=== PATIENT | female | born 1980 | race Two or more races ===

== ENCOUNTER 2020-10-06 14:38 | Emergency (ER) | payer OTHER ==
[~2020-10-06] VITALS: Ht 165.1 cm; Wt 61.2 kg
[2020-10-06] MEDS ORDERED: COZAAR25 MG PO (15:11)
[2020-10-06] MEDS ORDERED: LEVSIN/SL0.125 MG SL (21:44)
== END 2020-10-06 21:54 | disposition home or self-care (01) ==
LOC: ER 14:38
DX: K29.70 Gastritis, unspecified, without bleeding (principal); N83.202 Unspecified ovarian cyst, left side

== ENCOUNTER 2020-10-08 13:12 | Emergency (ER) | payer OTHER ==
[~2020-10-08] VITALS: Ht 165.1 cm; Wt 61.2 kg
[~2020-10-08 13:12] MED LIST: COZAAR25 MG PO; LEVSIN/SL0.125 MG SL
[2020-10-08] MEDS ORDERED: PROZAC20 MG (13:38)
[2020-10-08] MEDS ORDERED: SINGULAIR 10MG10 MG (13:39)
[2020-10-08] MEDS ORDERED: ALLEGRA ALLERGY60 MG (13:40)
[2020-10-08] MEDS ORDERED: CLONAZEPAM1 M1 (13:40)
[2020-10-08] MEDS ORDERED: PROTONIX20 MG (13:41)
== END 2020-10-08 21:06 | disposition home or self-care (01) ==
LOC: ER 13:12
DX: K29.00 Acute gastritis without bleeding (principal)

== ENCOUNTER 2020-12-23 15:49 | Emergency (ER) | payer OTHER ==
[~2020-12-23] VITALS: Ht 152.4 cm; Wt 66.7 kg
[~2020-12-23 15:49] MED LIST changes: +ALLEGRA ALLERGY60 MG; +CLONAZEPAM1 M1; +PROTONIX20 MG; +PROZAC20 MG; +SINGULAIR 10MG10 MG
[2020-12-23] MEDS ORDERED: PAXIL20 MG PO (15:54)
[2020-12-23] MEDS ORDERED: NORMAL SALINE FL2 ML IH (18:29)
[2020-12-23] MEDS ORDERED: PHENERGAN25 MG PO (18:29)
[2020-12-23] MEDS ORDERED: TREXIMET 85-501 EACH PO (18:29)
== END 2020-12-23 19:00 | disposition home or self-care (01) ==
LOC: ER 15:49
DX: R51.9 Headache, unspecified (principal); R11.2 Nausea with vomiting, unspecified; Z03.818 Encounter for observation for suspected exposure to other biological agents ruled out; J45.998 Other asthma; R09.81 Nasal congestion

== ENCOUNTER 2021-02-06 19:54 | Emergency (ER) | payer OTHER ==
[~2021-02-06] VITALS: Ht 165.1 cm; Wt 63.5 kg
[~2021-02-06 19:54] MED LIST changes: +NORMAL SALINE FL2 ML IH; +PAXIL20 MG PO; +PHENERGAN25 MG PO; +TREXIMET 85-501 EACH PO
[2021-02-06] MEDS ORDERED: ZOFRAN8 MG PO (23:15)
[2021-02-06] MEDS ORDERED: DICY20TA PO (23:15)
[2021-02-06] MEDS ORDERED: PEPCID AC20 MG PO (23:15)
[2021-02-06] MEDS ORDERED: SINGULAIR10 MG PO (23:15)
== END 2021-02-07 00:22 | disposition home or self-care (01) ==
LOC: ER 19:54
DX: B34.8 Other viral infections of unspecified site (principal); Z20.822 Contact with and (suspected) exposure to COVID-19

== ENCOUNTER 2021-05-28 15:45 | Emergency (ER) | payer OTHER ==
[~2021-05-28] VITALS: Ht 165.1 cm; Wt 59.0 kg
[~2021-05-28 15:45] MED LIST changes: +DICY20TA PO; +PEPCID AC20 MG PO; +SINGULAIR10 MG PO; +ZOFRAN8 MG PO
== END 2021-05-28 22:05 | disposition home or self-care (01) ==
LOC: ER 15:45
DX: K59.00 Constipation, unspecified (principal); R10.84 Generalized abdominal pain

== ENCOUNTER 2022-06-29 17:28 | Emergency (ER) | payer OTHER ==
[~2022-06-29] VITALS: Ht 165.1 cm; Wt 67.1 kg
[2022-06-30] MEDS ORDERED: OMEPRAZOLE MAGN20 MG PO (00:09)
[2022-06-30] MEDS ORDERED: PEPCID AC20 MG PO (00:09)
== END 2022-06-30 00:19 | disposition home or self-care (01) ==
LOC: ER 17:28
DX: K58.9 Irritable bowel syndrome, unspecified (principal); R10.9 Unspecified abdominal pain; Z87.09 Personal history of other diseases of the respiratory system; N80.9 Endometriosis, unspecified; Z20.822 Contact with and (suspected) exposure to COVID-19